=== PATIENT | male | born 1975 | race Caucasian/White ===

== ENCOUNTER 2016-09-03 18:44 | Emergency (ER) | payer OTHER ==
[2016-09-03 19:08] LABS: Mean Cell Volume 95.5 fl (78-100); Mean Corpuscular Hemoglobin 37.4 pg (26-32); Mean Platelet Volume 10.9 fl (6-9.5); Platelet Count 213 K/mm3 (150-450); Red Blood Count 4.44 M/mm3 (4.1-5.6); White Blood Count 7.7 K/mm3 (4.0-10.5)
[2016-09-03] MEDS ORDERED: DILAUDID 1 MG/ML INJECTION IV ONE ×2 (19:14→22:11)
[2016-09-03] MEDS ORDERED: Phenergan 25 MG INJ IV ONE ×2 (19:14→22:11)
[2016-09-03] MEDS ORDERED: Sodium Chloride 0.9% 1000 ML 1,000 ML IV SCH (19:15)
--- NOTE | 2016-09-03 19:22 | ERPHSYRPT ---
- History of Present Illness Time Seen by Provider: 09/03/16 19:05 Historian: patient Exam Limitations: no limitations Patient Subjective Stated Complaint: co pain to right side of abd for 2 days now , pt has hx of pancreatitis,kidney disease, and liver problems.nausea Triage Nursing Assessment: pt alert, and moaning in pain,rubbing right side of abd,able to eat today, and large and distended, last bm was yesterday, Physician History: FOR THE PAST 2 DAYS PT HAS HAD SHARP CONSTANT DIFFUSE ABDOMINAL PAIN RADIATING TO THE BACK WITH SHORTNESS OF AIR AND DIAPHORESIS. PT STATES HE HAD PANCREATITIS 4 MONTHS AGO AND WAS HOSPITALIZED AT [facility] FOR 1 MONTH. PT ALSO STATES HE DRINKS 4-5 BEERS/DAY FOR THE PAST 15 YEARS. PT DENIES FEVER, CHILLS, RASH. Allergies/Adverse Reactions: morphine Adverse Reaction (Verified 09/03/16 18:54) Home Medications: Alprazolam 1 mg [Xanax 1 mg] 2 tab PO TIDPRN PRN 06/16/14 [History] Citalopram Hydrobromide 20 mg* [ceLEXa 20 MG] 1 tab PO DAILY 06/16/14 [ History] Levetiracetam [Keppra] 1,000 mg PO BID 02/04/16 [History] Glipizide 10 mg [Glucotrol 10 MG] 10 mg PO BID 05/14/16 [History] PANTOPRAZOLE 40 mg Tablet [Protonix 40MG Tablet] 40 mg PO BID 05/14/16 [ History] Glyburide 5 mg PO DAILY 05/18/16 [History] Hx Tetanus, Diphtheria Vaccination/Date Given: Yes Hx Influenza Vaccination/Date Given: Yes Hx Pneumococcal Vaccination/Date Given: No Immunizations Up to Date: Yes - Review of Systems Constitutional: No Fever, No Chills Respiratory: Dyspnea Abdominal/Gastrointestinal: Abdominal Pain Musculoskeletal: Back Pain Skin: No Rash Endocrine: Excessive Sweating All Other Systems: Reviewed and Negative - Past Medical History Pertinent Past Medical History: Yes Neurological History: Seizures ENT History: No Pertinent History Cardiac History: No Pertinent History Respiratory History: COPD Endocrine Medical History: Diabetes Type II Musculoskeletal History: No Pertinent History GI Medical History: Pancreatitis, Other History: No Pertinent History Psycho-Social History: Anxiety, Depression Male Reproductive Disorders: No Pertinent History Other Medical History: hx orif rt elbow. 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 - Past Surgical History Past Surgical History: Yes Neuro Surgical History: No Pertinent History Cardiac: No Pertinent History Respiratory: No Pertinent History Gastrointestinal: No Pertinent History Genitourinary: No Pertinent History Musculoskeletal: Orthopedic Surgery Male Surgical History: No Pertinent History Other Surgical History: elbow - Social History Smoking Status: Never smoker Exposure to second hand smoke: No Drug Use: none Patient Lives Alone: No - Nursing Vital Signs Nursing Vital Signs: Initial Vital Signs Temperature 98.8 F Temperature Source Oral Pulse Rate 78 Respiratory Rate 16 Blood Pressure 123/78 Pain Intensity 9 - Physical Exam General Appearance: alert Eye Exam: PERRL/EOMI Ears, Nose, Throat Exam: pharynx normal, moist mucous membranes Neck Exam: normal inspection Respiratory Exam: wheezing (DIFFUSE MINIMAL EXPIRATORY WHEEZING) Cardiovascular Exam: tachycardia Gastrointestinal/Abdomen Exam: tenderness (MILD DIFFUSE TENDERNESS), distention , other (B.S. MILDLY HYPERACTIVE BUT NORMOTONIC) Back Exam: normal range of motion Extremity Exam: normal inspection, No pedal edema Neurologic Exam: alert, cooperative Skin Exam: warm, dry SpO2 Interpretation: normal SpO2: 97 Oxygen Delivery: Room Air - Course Nursing assessment & vital signs reviewed: Yes EKG Interpreted by Me: RATE ([id number]), Sinus Tach, NORMAL AXIS, NORMAL INTERVALS - Radiology Exams Chest X-ray Interpretation: Interpreted by me, No Pneumonia - CT Exams Abdomen/Pelvis CT Interpretation: Discussed w/radiologist (COMPARED TO 02/04/16: NEW 13.4 CM SPLENOMEGALY & MILD FECAL STASIS. STABLE FATTY LIVER & SIGMOID DIVERTICULOSIS. REMAINING ABD/PEL NEGATIVE.) Ordered Tests: Active Orders 24 hr Category Date Time Status Accucheck STAT Care 09/03/16 22:12 Active Clean Catch Urine Specimen STAT Care 09/03/16 19:14 Active EKG-ER Only STAT Care 09/03/16 19:14 Active IV Insertion STAT Care 09/03/16 18:58 Active IV Insertion STAT Care 09/03/16 20:24 Active ABDOMEN AND PELVIS W/0 CONTRAS [CT] Stat Exams 09/03/16 19:14 Taken CHEST 2 VIEWS (PA AND LAT) Stat Exams 09/03/16 19:15 Taken AMYLASE Stat Lab 09/03/16 18:55 Completed BLOOD CULTURE Stat Lab 09/03/16 19:30 Received CBC W DIFF Stat Lab 09/03/16 18:55 Completed CHOLESTEROL Stat Lab 09/03/16 18:55 Completed CMP Stat Lab 09/03/16 18:55 Results ETHOH [Ethyl Alcohol,Urine] Stat Lab 09/03/16 19:23 Completed LIPASE Stat Lab 09/03/16 18:55 Completed MAG [MAGNESIUM] Stat Lab 09/03/16 18:55 Completed Manual Differential NC Stat Lab 09/03/16 18:55 Completed TRIGLYCERIDE Stat Lab 09/03/16 18:55 Completed TROPONIN Stat Lab 09/03/16 18:55 Completed UA Stat Lab 09/03/16 18:58 Completed Urine Triage Profile Stat Lab 09/03/16 19:14 Completed Respiratory Nebulizer STAT RT 09/03/16 19:23 Completed Medication Summary Generic Name Dose Route Start Last Admin Trade Name Freq PRN Reason Stop Dose Admin Sodium Chloride 1,000 mls @ 100 mls/hr 09/03/16 19:15 09/03/16 19:32 Sodium Chloride 0.9% 1000 Ml IV 10/03/16 19:14 100 mls/hr .Q10H JENSEN Administration Discontinued Medications Generic Name Dose Route Start Last Admin Trade Name Freq PRN Reason Stop Dose Admin Albuterol Sulfate 2.5 mg 09/03/16 19:23 09/03/16 19:34 Proventil 2.5 Mg/3 Ml Neb IH 09/03/16 19:24 2.5 mg STAT ONE Administration Albuterol Sulfate Confirm 09/03/16 19:32 Proventil 2.5 Mg/3 Ml Neb Administered 09/03/16 19:33 Dose 2.5 mg IH .STK-MED ONE Hydromorphone HCl 1 mg 09/03/16 19:14 09/03/16 19:33 Dilaudid 1 Mg/Ml Injection IV 09/03/16 19:15 1 mg STAT ONE Administration Hydromorphone HCl Confirm 09/03/16 19:23 Dilaudid 1 Mg/Ml Injection Administered 09/03/16 19:24 Dose 1 mg .ROUTE .STK-MED ONE Hydromorphone HCl Confirm 09/03/16 20:39 Dilaudid 1 Mg/Ml Injection Administered 09/03/16 20:40 Dose 1 mg .ROUTE .STK-MED ONE Hydromorphone HCl 1 mg 09/03/16 22:11 09/03/16 22:18 Dilaudid 1 Mg/Ml Injection IV 09/03/16 22:12 1 mg STAT ONE Administration Hydromorphone HCl Confirm 09/03/16 22:16 Dilaudid 1 Mg/Ml Injection Administered 09/03/16 22:17 Dose 1 mg .ROUTE .STK-MED ONE Sodium Chloride Confirm 09/03/16 19:23 Sodium Chloride 0.9% 1000 Ml Administered 09/03/16 19:24 Dose 1,000 mls @ ud .ROUTE .STK-MED ONE Magnesium Sulfate/Dextrose 100 mls @ 200 mls/hr 09/03/16 20:29 09/03/16 20:46 Magnesium 1 Gm / 100 Ml D5w IV 09/03/16 20:58 200 mls/hr STAT ONE Administration Magnesium Sulfate/Dextrose Confirm 09/03/16 20:46 Magnesium 1 Gm / 100 Ml D5w Administered 09/03/16 20:47 Dose 100 mls @ ud IV .STK-MED ONE Insulin Human Regular 10 unit 09/03/16 20:27 09/03/16 20:41 Novolin R IV 09/03/16 20:28 10 unit STAT ONE Administration Insulin Human Regular Confirm 09/03/16 20:38 Novolin R Administered 09/03/16 20:39 Dose 10 unit .ROUTE .STK-MED ONE Promethazine HCl 12.5 mg 09/03/16 19:14 09/03/16 19:33 Phenergan 25 Mg Inj IV 09/03/16 19:15 12.5 mg STAT ONE Administration Promethazine HCl Confirm 09/03/16 19:23 Phenergan 25 Mg Inj Administered 09/03/16 19:24 Dose 25 mg .ROUTE .STK-MED ONE Promethazine HCl 12.5 mg 09/03/16 22:11 09/03/16 22:17 Phenergan 25 Mg Inj IV 09/03/16 22:12 12.5 mg STAT ONE Administration Promethazine HCl Confirm 09/03/16 22:16 Phenergan 25 Mg Inj Administered 09/03/16 22:17 Dose 25 mg .ROUTE .STK-MED ONE Lab/Rad Data: Laboratory Result Diagrams 09/03/16 18:55 09/03/16 18:55 Laboratory Results 09/03/16 09/03/16 09/03/16 Range/Units 19:23 19:14 18:58 WBC (4.0-10.5) K/mm3 RBC (4.1-5.6) M/mm3 Hgb (12.5-18.0) gm/dl Hct (42-50) % MCV (78-100) fl MCH (26-32) pg MCHC (32-36) g/dl RDW (11.5-14.0) % Plt Count (150-450) K/mm3 MPV (6-9.5) fl Segmented Neutrophils (36.-66.) % Lymphocytes (Manual) (24-44) % Monocytes (Manual) (0.0-12.0) % Eosinophils (Manual) (0.00-3.0) % Differential Comment Platelet Estimate (NORMAL) Sodium (136-145) mEq/L Potassium (3.5-5.1) mEq/L Chloride (98-107) mEq/L Carbon Dioxide Anion Gap BUN (9-20) mg/dL Creatinine (0.55-1.30) mg/dl Estimated GFR ML/MIN Glucose (70-110) MG/DL Calcium (8.5-10.1) mg/dL Magnesium (1.8-2.4) mg/dL Total Bilirubin (0.2-1.0) mg/dL AST (15-37) U/L ALT (12-78) U/L Alkaline Phosphatase (46-116) U/L Troponin I (0.000-0.056) ng/ml Serum Total Protein Albumin (3.4-5.0) g/dL Amylase (25-115) U/L Lipase (73-393) U/L Ur Collection Type CLEAN CATCH Urine Color YELLOW (YELLOW) Urine Appearance CLEAR (CLEAR) Urine pH 5.5 5.5 (5-6) Ur Specific [place] 1.015 (1.005-1.025) Urine Protein NEGATIVE (Negative) Urine Glucose (UA) 500 (NEGATIVE) mg/dL Urine Ketones NEGATIVE (NEGATIVE) Urine Nitrite NEGATIVE (NEGATIVE) Urine Bilirubin NEGATIVE (NEGATIVE) Urine Urobilinogen 0.2 (0-1) mg/dL Urine WBC (Auto) NEGATIVE (NEGATIVE) Urine RBC (Auto) NEGATIVE (0-5) Sergo/ul Urine Opiates Level NEG. (NEGATIVE) Ur Methadone NEG. (NEGATIVE) Urine Barbiturates NEG. (NEGATIVE) Ur Phencyclidine (PCP) NEG. (NEGATIVE) Urine Amphetamine NEG. (NEGATIVE) U Benzodiazepine Level POS. (NEGATIVE) Urine Cocaine NEG. (NEGATIVE) Urine Marijuana (THC) NEG. (NEGATIVE) Urine Ethyl Alcohol 87 H (0.00-20) mg/dl Specimen Received [id number] 09/03/16 09/03/16 09/03/16 Range/Units 18:55 18:55 18:55 WBC (4.0-10.5) K/mm3 RBC (4.1-5.6) M/mm3 Hgb (12.5-18.0) gm/dl Hct (42-50) % MCV (78-100) fl MCH (26-32) pg MCHC (32-36) g/dl RDW (11.5-14.0) % Plt Count (150-450) K/mm3 MPV (6-9.5) fl Segmented Neutrophils (36.-66.) % Lymphocytes (Manual) (24-44) % Monocytes (Manual) (0.0-12.0) % Eosinophils (Manual) (0.00-3.0) % Differential Comment Platelet Estimate (NORMAL) Sodium 131 L (136-145) mEq/L Potassium 4.9 (3.5-5.1) mEq/L Chloride 96 L (98-107) mEq/L Carbon Dioxide Pending Anion Gap Pending BUN 15 (9-20) mg/dL Creatinine 0.55 (0.55-1.30) mg/dl Estimated GFR > 60 ML/MIN Glucose 454 H (70-110) MG/DL Calcium 6.6 L (8.5-10.1) mg/dL Magnesium 1.7 L (1.8-2.4) mg/dL Total Bilirubin 1.3 H (0.2-1.0) mg/dL AST 126 H (15-37) U/L ALT 123 H (12-78) U/L Alkaline Phosphatase 110 (46-116) U/L Troponin I < 0.017 (0.000-0.056) ng/ml Serum Total Protein Pending Albumin 3.4 (3.4-5.0) g/dL Amylase 47 (25-115) U/L Lipase 242 (73-393) U/L Ur Collection Type Urine Color (YELLOW) Urine Appearance (CLEAR) Urine pH (5-6) Ur Specific [place] (1.005-1.025) Urine Protein (Negative) Urine Glucose (UA) (NEGATIVE) mg/dL Urine Ketones (NEGATIVE) Urine Nitrite (NEGATIVE) Urine Bilirubin (NEGATIVE) Urine Urobilinogen (0-1) mg/dL Urine WBC (Auto) (NEGATIVE) Urine RBC (Auto) (0-5) Sergo/ul Urine Opiates Level (NEGATIVE) Ur Methadone (NEGATIVE) Urine Barbiturates (NEGATIVE) Ur Phencyclidine (PCP) (NEGATIVE) Urine Amphetamine (NEGATIVE) U Benzodiazepine Level (NEGATIVE) Urine Cocaine (NEGATIVE) Urine Marijuana (THC) (NEGATIVE) Urine Ethyl Alcohol (0.00-20) mg/dl Specimen Received 09/03/16 Range/Units 18:55 WBC 7.7 (4.0-10.5) K/mm3 RBC 4.44 (4.1-5.6) M/mm3 Hgb 16.6 (12.5-18.0) gm/dl Hct 42.4 (42-50) % MCV 95.5 (78-100) fl MCH 37.4 H (26-32) pg MCHC 39.2 H (32-36) g/dl RDW 13.0 (11.5-14.0) % Plt Count 213 (150-450) K/mm3 MPV 10.9 H (6-9.5) fl Segmented Neutrophils 47 (36.-66.) % Lymphocytes (Manual) 39 (24-44) % Monocytes (Manual) 12 (0.0-12.0) % Eosinophils (Manual) 2 (0.00-3.0) % Differential Comment NORMAL Platelet Estimate NORMAL (NORMAL) Sodium (136-145) mEq/L Potassium (3.5-5.1) mEq/L Chloride (98-107) mEq/L Carbon Dioxide Anion Gap BUN (9-20) mg/dL Creatinine (0.55-1.30) mg/dl Estimated GFR ML/MIN Glucose (70-110) MG/DL Calcium (8.5-10.1) mg/dL Magnesium (1.8-2.4) mg/dL Total Bilirubin (0.2-1.0) mg/dL AST (15-37) U/L ALT (12-78) U/L Alkaline Phosphatase (46-116) U/L Troponin I (0.000-0.056) ng/ml Serum Total Protein Albumin (3.4-5.0) g/dL Amylase (25-115) U/L Lipase (73-393) U/L Ur Collection Type Urine Color (YELLOW) Urine Appearance (CLEAR) Urine pH (5-6) Ur Specific [place] (1.005-1.025) Urine Protein (Negative) Urine Glucose (UA) (NEGATIVE) mg/dL Urine Ketones (NEGATIVE) Urine Nitrite (NEGATIVE) Urine Bilirubin (NEGATIVE) Urine Urobilinogen (0-1) mg/dL Urine WBC (Auto) (NEGATIVE) Urine RBC (Auto) (0-5) Sergo/ul Urine Opiates Level (NEGATIVE) Ur Methadone (NEGATIVE) Urine Barbiturates (NEGATIVE) Ur Phencyclidine (PCP) (NEGATIVE) Urine Amphetamine (NEGATIVE) U Benzodiazepine Level (NEGATIVE) Urine Cocaine (NEGATIVE) Urine Marijuana (THC) (NEGATIVE) Urine Ethyl Alcohol (0.00-20) mg/dl Specimen Received - Progress Discussed with : Other (SPOKE WITH DR CABALLERO(HOSPITALIST AT [facility] )([id number]) WHO ACCEPTED PT FOR TRANSFER TO [facility] A DIRECT ADMISSION.) - Departure Time of Disposition: 23:22 Departure Disposition: Transfer ([facility].) Clinical Impression: ABDOMINAL PAIN, DYSPNEA, HYPERTRIGLYCERIDEMIA Condition: Fair Critical Care Time: No
[2016-09-03] MEDS ORDERED: PROVENTIL 2.5 MG/3 ML NEB IH ONE ×2 (19:23→19:32)
[2016-09-03] MEDS ORDERED: Phenergan 25 MG INJ ONE ×2 (19:23→22:16)
[2016-09-03] MEDS ORDERED: Sodium Chloride 0.9% 1000 ML 1,000 ML ONE (19:23)
[2016-09-03] MEDS ORDERED: DILAUDID 1 MG/ML INJECTION ONE ×3 (19:23→22:16)
[2016-09-03 19:24] LABS: ALBUMIN 3.4 g/dL (3.4-5.0); BILIRUBIN,TOTAL 1.3 mg/dL (0.2-1.0); BLOOD UREA NITROGEN 15 mg/dL (9-20); CHLORIDE 96 mEq/L (98-107); Glucose 454 MG/DL (70-110); Potassium 4.9 mEq/L (3.5-5.1); SODIUM 131 mEq/L (136-145)
[2016-09-03 19:29] LABS: LIPASE 242 U/L (73-393)
[2016-09-03 19:36] LABS: MAGNESIUM 1.7 mg/dL (1.8-2.4)
[2016-09-03 19:41] LABS: COMPLETE URINE MICROSCOPIC? NO; Collection Type CLEAN CATCH; Ph 5.5 (5-6)
[2016-09-03 19:48] LABS: TROPONIN < 0.017 ng/ml (0.000-0.056)
[2016-09-03 20:15] LABS: ALKALINE PHOSPHATASE 110 U/L (46-116)
[2016-09-03 20:17] LABS: Eosinophil 2 % (0.00-3.0); Platelet Estimate NORMAL (NORMAL); Total Cells Counted 100
[2016-09-03] MEDS ORDERED: NovoLIN R IV ONE (20:27)
[2016-09-03] MEDS ORDERED: Magnesium 1 Gm / 100 Ml D5W*** 100 ML IV ONE ×2 (20:29→20:46)
[2016-09-03] MEDS ORDERED: NovoLIN R ONE (20:38)
[2016-09-03 21:09] LABS: SGOT/AST 126 U/L (15-37)
[2016-09-03 21:51] LABS: SGPT/ALT 123 U/L (12-78)
[2016-09-04 00:08] VITALS: BP 133/88
[2016-09-04] MEDS ORDERED: DILAUDID 1 MG/ML INJECTION IV ONE (00:39)
[2016-09-04] MEDS ORDERED: DILAUDID 1 MG/ML INJECTION ONE (00:42)
[2016-09-04 00:48] VITALS: PULSE 81; O2SAT 93
--- NOTE | 2016-09-04 08:36 | XRAY ---
Indication: Short of breath. Comparison: February 21, 2015 PA/lateral chest again hyperinflated and clear. Heart and mediastinal structures stable and within normal limits. Bony thorax intact. Impression: Stable nonacute hyperinflated chest.
--- NOTE | 2016-09-04 08:37 | XRAY ---
Indication: Bilateral flank and mid abdominal pain. Dark stools. History of pancreatitis. Multiple contiguous axial images obtained through the abdomen and pelvis without contrast as ordered. Comparison: February 04, 2016 Lung bases again demonstrates minimal bibasilar dependent atelectasis. Heart is not enlarged. Stomach is distended with food/fluid. Noncontrasted bowel loops appear nonobstructed. There is now mild diffuse scattered colonic fecal debris. Normal appendix. Again mild sigmoid diverticulosis without diverticulitis. No free fluid/air. Stable fatty liver. The spleen is now enlarged measuring 13.4 cm again with calcified granulomas. Remaining liver, gallbladder, pancreas, spleen, adrenal glands, kidneys, ureters, bladder, and aorta appear unremarkable for noncontrast exam. Osseous structures intact again with lower lumbar degenerative changes. Impression: 1. Fecal stasis without obstruction. 2. No acute intra-abdominal/pelvic abnormalities on this noncontrast exam. 3. Incidental splenomegaly, sigmoid diverticulosis, and fatty liver. CT DI 27.82
== END 2016-09-04 00:47 | disposition short-term general hospital (02) ==
LOC: ED 18:44
DX: R10.9 Unspecified abdominal pain (principal); R06.00 Dyspnea, unspecified; E78.1 Pure hyperglyceridemia; R06.02 Shortness of breath; R61 Generalized hyperhidrosis; Z79.899 Other long term (current) drug therapy; E11.9 Type 2 diabetes mellitus without complications
CPT/HCPCS: 36000; 36415; 71020; 74176; 80053; 80307; 80320; 81002; 82150; 82465; 82962; 83690; 83735; 83986; 84478; 84484; 85025; 87040; 93005; 94640; 96360; 96361; 96365; 96374; 96375; 99284; J1170; J2550; J3475

== ENCOUNTER 2016-10-28 15:16 | Emergency (ER) | payer OTHER, SELFPAY ==
[2016-10-28] MEDS ORDERED: Sodium Chloride 0.9% 1000 ML 1,000 ML IV SCH (16:00)
--- NOTE | 2016-10-28 16:00 | ERPHSYRPT ---
- History of Present Illness Time Seen by Provider: 10/28/16 15:20 Source: patient Exam Limitations: clinical condition Patient Subjective Stated Complaint: pt state he noticed left hand and arm swelling when he woke up this morning. pt c.o pain to left hand and arm. Triage Nursing Assessment: pt pink, warm, dry. left hand swollen, no bruising. no redness. radial and brachial pulses strong. Physician History: PATIENT WITH HISTORY OF HYPERTENSION,TYPE 2 DIABETES, SEIZURE DISORDER AND PANCREATITIS AWAKENED FROM SLEEP WITH LEFT HAND, WRIST AND FOREARM PAIN AND SWELLING. DENIES INJURY OR TRAUMA. HAS MARKED PAIN UPON RANGE OF MOTION OF DIGITS, MOTION OR WRIST. DENIES FEVER, CHILLS. Occurred: this morning Method of Injury: unknown (DENIES INJURY OR TRAUMA) Quality: constant Severity of Pain-Max: severe Severity of Pain-Current: severe Extremities Pain Location: forearm: left, wrist: left, hand: left Modifying Factors: Improves With: movement Associated Symptoms: none Allergies/Adverse Reactions: morphine Adverse Reaction (Verified 10/28/16 15:22) Home Medications: Alprazolam 1 mg [Xanax 1 mg] 2 tab PO TIDPRN PRN 06/16/14 [History] Citalopram Hydrobromide 20 mg* [ceLEXa 20 MG] 1 tab PO DAILY 06/16/14 [ History] Levetiracetam [Keppra] 1,000 mg PO BID 02/04/16 [History] Glipizide 10 mg [Glucotrol 10 MG] 10 mg PO BID 05/14/16 [History] PANTOPRAZOLE 40 mg Tablet [Protonix 40MG Tablet] 40 mg PO BID 05/14/16 [ History] Glyburide 5 mg PO DAILY 05/18/16 [History] Atorvastatin Calcium [Lipitor 40Mg] 40 mg PO HS 10/28/16 [History] Hx Tetanus, Diphtheria Vaccination/Date Given: Yes (up to date) Hx Influenza Vaccination/Date Given: Yes Hx Pneumococcal Vaccination/Date Given: No Immunizations Up to Date: Yes - Review of Systems Constitutional: No Fever, No Chills Eyes: No Symptoms Ears, Nose, & Throat: No Symptoms Respiratory: No Symptoms, No Cough, No Dyspnea Cardiac: No Chest Pain, No Edema, No Syncope Abdominal/Gastrointestinal: No Symptoms, No Abdominal Pain, No Nausea, No Vomiting, No Diarrhea Genitourinary Symptoms: No Dysuria Musculoskeletal: Joint Pain, Joint Swelling, No Back Pain, No Neck Pain Skin: No Rash Neurological: No Dizziness, No Focal Weakness, No Sensory Changes Psychological: No Symptoms Endocrine: No Symptoms All Other Systems: Reviewed and Negative - Past Medical History Pertinent Past Medical History: Yes Neurological History: Seizures ENT History: No Pertinent History Cardiac History: No Pertinent History Respiratory History: COPD Endocrine Medical History: Diabetes Type II Musculoskeletal History: No Pertinent History GI Medical History: Pancreatitis, Other History: No Pertinent History Psycho-Social History: Anxiety, Depression Male Reproductive Disorders: No Pertinent History Other Medical History: hx orif rt elbow. 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 - Past Surgical History Past Surgical History: Yes Neuro Surgical History: No Pertinent History Cardiac: No Pertinent History Respiratory: No Pertinent History Gastrointestinal: No Pertinent History Genitourinary: No Pertinent History Musculoskeletal: Orthopedic Surgery Male Surgical History: No Pertinent History Other Surgical History: elbow - Social History Smoking Status: Never smoker Exposure to second hand smoke: No Drug Use: none Patient Lives Alone: No - Nursing Vital Signs Nursing Vital Signs: Initial Vital Signs Temperature 97.8 F Temperature Source Oral Pulse Rate 87 Respiratory Rate 18 Blood Pressure [Right Arm] 130/70 Pain Intensity 3 - Physical Exam General Appearance: alert Eyes, Ears, Nose, Throat Exam: moist mucous membranes Neck Exam: non-tender, supple Cardiovascular/Respiratory Exam: chest non-tender, normal breath sounds, regular rate/rhythm, no respiratory distress Abdominal Exam: non-tender, No guarding Back Exam: normal inspection, No vertebral tenderness Shoulder Exam: normal inspection Hand Exam: soft tissue tenderness (SWELLING DORSUM LEFT HAND, WRIST, MID TO DISTAL FOREARM, MARKED TENDERNESS, MARKED PAIN UPON PASSIVE MOTION DIGITS, WRIST MOTION.), stiffness DTR - Upper Extremity Exam: bicep (R): 2+, bicep (L): 2+, tricep (R): 2+, tricep (L): 2+ Neuro/Tendon Exam: normal sensation, normal motor functions Mental Status Exam: alert, oriented x 3, cooperative Skin Exam: normal color, warm, dry SpO2: 94 Oxygen Delivery: Room Air - Radiology Exams Left Hand X-ray Interpretation: Interpreted by me, No Fracture (SOFT TISSUE SWELLING WITHOUT FRACTURE) Left Wrist X-ray Interpretation: Interpreted by me, No Fracture (SOFT TISSUE SWELLING WITHOUT FRACTURE) - Radiology Ultrasound Exam Left Venous Upper Extremity Ultrasound: discussed w/radiologist, Other (NO DVT) Ordered Tests: Active Orders 24 hr Category Date Time Status IV Insertion STAT Care 10/28/16 15:49 Active Sling Application STAT Care 10/28/16 17:16 Active Splint STAT Care 10/28/16 17:16 Active FOREARM Stat Exams 10/28/16 15:25 Taken HAND (MINIMUM 3 VIEWS) Stat Exams 10/28/16 15:25 Taken VENOUS UNILAT/LIMITED EXTREMIT [US] Stat Exams 10/28/16 15:47 Taken BLOOD CULTURE Stat Lab 10/28/16 16:00 Received BMP Stat Lab 10/28/16 15:55 Results CBC W DIFF Stat Lab 10/28/16 15:55 Completed CK-Creatinine Phosphokinase Stat Lab 10/28/16 15:55 Results SED RATE [Erythrocyte Sedimentation Rate] Stat Lab 10/28/16 15:54 Completed Urine Triage Profile Stat Lab 10/28/16 15:54 Completed Medication Summary Generic Name Dose Route Start Last Admin Trade Name Freq PRN Reason Stop Dose Admin Sodium Chloride 1,000 mls @ 500 mls/hr 10/28/16 16:00 10/28/16 16:05 Sodium Chloride 0.9% 1000 Ml IV 11/27/16 15:59 500 mls/hr .Q2H JENSEN Administration Vancomycin HCl 250 mls @ 167 mls/hr 10/28/16 16:13 10/28/16 16:17 Vancomycin 1gm/ Ns 250ml IV 10/28/16 17:42 167 mls/hr STAT ONE Administration Discontinued Medications Generic Name Dose Route Start Last Admin Trade Name Freq PRN Reason Stop Dose Admin Hydromorphone HCl 2 mg 10/28/16 16:01 Dilaudid 2 Mg Injection IV 11/02/16 16:00 Q4H PRN PRN PAIN Hydromorphone HCl Confirm 10/28/16 16:03 Hydromorphone 1 Mg/Ml Ampule Administered 10/28/16 16:04 Dose 2 mg .ROUTE .STK-MED ONE Hydromorphone HCl 2 mg 10/28/16 16:06 10/28/16 16:09 Hydromorphone 1 Mg/Ml Ampule IV 10/28/16 16:07 2 mg STAT ONE Administration Sodium Chloride Confirm 10/28/16 16:03 Sodium Chloride 0.9% 1000 Ml Administered 10/28/16 16:04 Dose 1,000 mls @ ud .ROUTE .STK-MED ONE Vancomycin HCl Confirm 10/28/16 16:14 Vancomycin 1gm/ Ns 250ml Administered 10/28/16 16:15 Dose 250 mls @ ud IV .STK-MED ONE Ketorolac Tromethamine 30 mg 10/28/16 17:13 10/28/16 17:18 Toradol 30 Mg Injection IV 10/28/16 17:14 30 mg STAT ONE Administration Ketorolac Tromethamine Confirm 10/28/16 17:17 Toradol 30 Mg Injection Administered 10/28/16 17:18 Dose 30 mg .ROUTE .STK-MED ONE Methylprednisolone Sodium Succinate 125 mg 10/28/16 17:13 10/28/16 17:19 Solu-Medrol 125 Mg IV 10/28/16 17:14 125 mg STAT ONE Administration Methylprednisolone Sodium Succinate Confirm 10/28/16 17:17 Solu-Medrol 125 Mg Administered 10/28/16 17:18 Dose 125 mg .ROUTE .STK-MED ONE Ondansetron HCl 4 mg 10/28/16 16:01 10/28/16 16:05 Zofran 4 Mg/2 Ml Vial IV 10/28/16 16:02 4 mg STAT ONE Administration Ondansetron HCl Confirm 10/28/16 16:03 Zofran 4 Mg/2 Ml Vial Administered 10/28/16 16:04 Dose 4 mg .ROUTE .STK-MED ONE Lab/Rad Data: Laboratory Result Diagrams 10/28/16 15:55 10/28/16 15:55 Laboratory Results 10/28/16 10/28/16 10/28/16 Range/Units 15:55 15:55 15:54 WBC 9.9 (4.0-10.5) K/mm3 RBC 4.37 (4.1-5.6) M/mm3 Hgb 15.0 (12.5-18.0) gm/dl Hct 41.9 L (42-50) % MCV 95.9 (78-100) fl MCH 34.3 H (26-32) pg MCHC 35.8 (32-36) g/dl RDW 13.3 (11.5-14.0) % Plt Count 161 (150-450) K/mm3 MPV 10.2 H (6-9.5) fl Gran % 74.1 H (36.0-66.0) % Lymphocytes % 16.9 L (24.0-44.0) % Monocytes % 8.2 (0.0-12.0) % Eosinophils % 0.7 (0.00-5.0) % Basophils % 0.1 (0.0-0.4) % Basophils # 0.01 (0-0.4) ESR 2 (0-15) mm/hr Sodium Pending Potassium Pending Chloride Pending Carbon Dioxide 23.1 (21-32) mEq/L Anion Gap Pending BUN 17 (9-20) mg/dL Creatinine 1.19 (0.55-1.30) mg/dl Estimated GFR > 60 ML/MIN Glucose 108 (70-110) MG/DL Calcium 9.1 (8.5-10.1) mg/dL Creatine Kinase 181 (39-308) U/L Urine Opiates Level (NEGATIVE) Ur Methadone (NEGATIVE) Urine Barbiturates (NEGATIVE) Ur Phencyclidine (PCP) (NEGATIVE) Urine Amphetamine (NEGATIVE) U Benzodiazepine Level (NEGATIVE) Urine Cocaine (NEGATIVE) Urine Marijuana (THC) (NEGATIVE) 10/28/16 Range/Units 15:54 WBC (4.0-10.5) K/mm3 RBC (4.1-5.6) M/mm3 Hgb (12.5-18.0) gm/dl Hct (42-50) % MCV (78-100) fl MCH (26-32) pg MCHC (32-36) g/dl RDW (11.5-14.0) % Plt Count (150-450) K/mm3 MPV (6-9.5) fl Gran % (36.0-66.0) % Lymphocytes % (24.0-44.0) % Monocytes % (0.0-12.0) % Eosinophils % (0.00-5.0) % Basophils % (0.0-0.4) % Basophils # (0-0.4) ESR (0-15) mm/hr Sodium Potassium Chloride Carbon Dioxide (21-32) mEq/L Anion Gap BUN (9-20) mg/dL Creatinine (0.55-1.30) mg/dl Estimated GFR ML/MIN Glucose (70-110) MG/DL Calcium (8.5-10.1) mg/dL Creatine Kinase (39-308) U/L Urine Opiates Level NEG. (NEGATIVE) Ur Methadone NEG. (NEGATIVE) Urine Barbiturates NEG. (NEGATIVE) Ur Phencyclidine (PCP) NEG. (NEGATIVE) Urine Amphetamine NEG. (NEGATIVE) U Benzodiazepine Level POS. (NEGATIVE) Urine Cocaine NEG. (NEGATIVE) Urine Marijuana (THC) NEG. (NEGATIVE) - Progress Progress: improved Progress Note: 10/28/16 17:38 PATIENT GIVEN NORMAL SALINE 500ML/HR, VANCOMYCIN 1GM IVPB AFTER BLOOD CULTURES, ZOFRAN 4MG, DILAUDID 2MG IV, ORTHOGLASS LEFT SHORT FOREARM SPLINT WITH ARM SLING Counseled pt/family regarding: lab results, diagnosis, need for follow-up, rad results - Departure Time of Disposition: 18:14 Departure Disposition: Home Clinical Impression: TENDONITIS LEFT HAND/WRIST , EARLY CELLULITIS LEFT HAND/WRIST Condition: Stable Critical Care Time: No Additional Instructions: MAINTAIN WRIST SPLINT WITH ARM SLING FOR 5 DAYS THEN REMOVE. CONSULT YOUR FAMILY PHYSICIAN IN 1 WEEK. NORCO 10/325 EVERY 4 HOURS FOR SEVERE PAIN. PREDNISONE 20MG, 2 TABLETS DAILY FOR 4 DAYS, AND TORADOL 10MG EVERY 6 HOURS FOR MILD TO MODERATE PAIN. ANTIBIOTIC AUGMENTIN 875MG TWICE DAILY FOR 10 DAYS. WATCH FOR SIGNS OF INCREASING INFECTION, RED STREAKS, FEVER, CHILLS. Prescriptions: Hydrocodone/APAP 10/325 mg [[place] 10/325 MG Tablet] 1 tab PO Q4H PRN PRN # 10 tablet PRN Reason: Pain Ketorolac Tromethamine [Toradol] 10 mg PO Q6HPRN PRN #20 tablet PRN Reason: Pain Amox Tr/Potass Clav. 875 mg [Augmentin 875-125 Tablet] 875 mg PO BID #20 tablet Prednisone 20 mg [Deltasone 20 mg] 2 tablet PO DAILY #8 tablet
[2016-10-28] MEDS ORDERED: Zofran 4 MG/2 ML VIAL IV ONE (16:01)
[2016-10-28] MEDS ORDERED: DILAUDID 2 MG INJECTION IV PRN (16:01)
[2016-10-28] MEDS ORDERED: Sodium Chloride 0.9% 1000 ML 1,000 ML ONE (16:03)
[2016-10-28] MEDS ORDERED: Zofran 4 MG/2 ML VIAL ONE (16:03)
[2016-10-28] MEDS ORDERED: Hydromorphone 1 mg/ml Ampule ONE (16:03)
[2016-10-28] MEDS ORDERED: Hydromorphone 1 mg/ml Ampule IV ONE (16:06)
[2016-10-28 16:10] LABS: BASOPHIL % 0.1 % (0.0-0.4); Eosinophil % 0.7 % (0.00-5.0); Granulocytes % 74.1 % (36.0-66.0); Lymphocytes % 16.9 % (24.0-44.0); Mean Cell Volume 95.9 fl (78-100); Mean Corpuscular Hemoglobin 34.3 pg (26-32); Mean Platelet Volume 10.2 fl (6-9.5); Monocytes % 8.2 % (0.0-12.0); Platelet Count 161 K/mm3 (150-450); Red Blood Count 4.37 M/mm3 (4.1-5.6); Red Cell Distribution Width 13.3 % (11.5-14.0); White Blood Count 9.9 K/mm3 (4.0-10.5)
[2016-10-28] MEDS ORDERED: Vancomycin 1GM/ Ns 250ML*** 250 ML IV ONE ×2 (16:13→16:14)
[2016-10-28 16:27] LABS: BLOOD UREA NITROGEN 17 mg/dL (9-20); Carbon Dioxide 23.1 mEq/L (21-32); Glucose 108 MG/DL (70-110)
[2016-10-28] MEDS ORDERED: TORAdol 30 mg Injection IV ONE (17:13)
[2016-10-28] MEDS ORDERED: solu-MEDROL 125 MG IV ONE (17:13)
[2016-10-28] MEDS ORDERED: TORAdol 30 mg Injection ONE (17:17)
[2016-10-28] MEDS ORDERED: solu-MEDROL 125 MG ONE (17:17)
[2016-10-28 17:55] LABS: CHLORIDE 104 mEq/L (98-107); Potassium 3.6 mEq/L (3.5-5.1); SODIUM 141 mEq/L (136-145)
[2016-10-28 17:59] LABS: ANION GAP 17.5 MEQ/L (5-15)
[2016-10-28 18:22] VITALS: BP 137/72; PULSE 78; O2SAT 99
--- NOTE | 2016-10-28 20:54 | XRAY ---
Indication: Pain and swelling. No known injury. Comparison: None 2 views of the left forearm demonstrates a few punctate soft tissue foreign bodies. No other bony, articular, or soft tissue abnormalities.
--- NOTE | 2016-10-28 20:56 | XRAY ---
Indication: Pain and swelling. No known injury. Comparison: None 3 views of the left hand demonstrates distal forearm punctate soft tissue foreign body. No other bony, articular, or soft tissue abnormalities.
--- NOTE | 2016-10-28 20:57 | XRAY ---
Indication: Left arm pain and swelling. No known injury. Two-dimensional sonogram and color Doppler imaging of the major venous vessels of the left upper extremity was performed. Comparison: None No thrombus seen in the visualized jugular, subclavian, axillary, brachial, basilic, cephalic, antecubital, radial, and ulnar veins. Veins demonstrate normal compressibility. Venous waveforms are normal with and without augmentation. Impression: Left upper extremity negative for DVT. Comment: Preliminary report was given.
== END 2016-10-28 18:22 | disposition home or self-care (01) ==
LOC: ED 15:16
PROC: 2W3DX1Z Immobilization of Left Lower Arm using Splint (ICD-10-PCS; principal; 2016-10-28)
DX: M77.8 Other enthesopathies, not elsewhere classified (principal); L03.114 Cellulitis of left upper limb; M79.642 Pain in left hand; M25.532 Pain in left wrist
CPT/HCPCS: 29126; 36000; 36415; 73090; 73130; 80048; 80307; 82550; 85025; 85652; 87040; 93971; 96360; 96365; 96366; 96374; 96375; 99284; 99285; J1170; J1885; J2405; J2930; J3370

== ENCOUNTER 2016-10-29 09:31 | Inpatient (IN) | payer OTHER, SELFPAY ==
[2016-10-29] MEDS ORDERED: VANCOCIN 1 GM VIAL*** 1.25 GM in Sodium Chloride 0.9% 250 ML 250 ML IV SCH (10:00)
[2016-10-29] MEDS ORDERED: KEPPRA 500 MG PO SCH (10:00)
[2016-10-29 10:30] LABS: Granulocytes % 86.8 % (36.0-66.0); Lymphocytes % 6.2 % (24.0-44.0); Mean Cell Volume 96.1 fl (78-100); Mean Corpuscular Hemoglobin 34.7 pg (26-32); Mean Platelet Volume 10.3 fl (6-9.5); Platelet Count 159 K/mm3 (150-450); Red Blood Count 4.32 M/mm3 (4.1-5.6); Red Cell Distribution Width 13.4 % (11.5-14.0); White Blood Count 15.2 K/mm3 (4.0-10.5)
[2016-10-29 10:39] LABS: ALBUMIN 3.6 g/dL (3.4-5.0); ALKALINE PHOSPHATASE 76 U/L (46-116); ANION GAP 19.1 MEQ/L (5-15); BILIRUBIN,TOTAL 0.8 mg/dL (0.2-1.0); BLOOD UREA NITROGEN 16 mg/dL (9-20); CHLORIDE 103 mEq/L (98-107); Carbon Dioxide 22.3 mEq/L (21-32); Glucose 165 MG/DL (70-110); Potassium 3.8 mEq/L (3.5-5.1); SGOT/AST 22 U/L (15-37); SGPT/ALT 67 U/L (12-78); SODIUM 141 mEq/L (136-145); Total Protein 7.4 gm/dL (6.4-8.2)
[2016-10-29] MEDS: DILAUDID 2 MG INJECTION IV PRN ×4 (11:11→20:37)
[2016-10-29] MEDS: Micronase 5 MG PO SCH (11:15)
[2016-10-29] MEDS: Protonix 40MG Tablet PO SCH ×2 (11:15→22:30)
[2016-10-29] MEDS: ceLEXa 20 MG PO SCH (12:51)
[2016-10-29] MEDS: Zosyn 3.375GM/100 Ml D5W 100 ML IV SCH ×2 (12:51→17:37)
[2016-10-29] MEDS: Glucotrol 10 MG PO SCH (16:03)
[2016-10-29] MEDS: XANAX 1 MG PO PRN ×2 (16:03→22:30)
[2016-10-29] MEDS ORDERED: VANCOCIN 1 GM VIAL*** 1 GM in Sodium Chloride 0.9% 250 ML 250 ML IV SCH (18:00)
[2016-10-29] MEDS: VANCOCIN 1 GM VIAL*** 1.25 GM in Sodium Chloride 0.9% 250 ML 250 ML IV SCH (18:55)
[2016-10-29] MEDS: OXYCODONE-ACETAMINOPHEN 10-325 PO PRN (22:31)
[2016-10-29] MEDS: ZOCOR 20MG PO SCH (22:31)
[2016-10-30] MEDS: Zosyn 3.375GM/100 Ml D5W 100 ML IV SCH ×5 (00:39→23:02)
[2016-10-30] MEDS: DILAUDID 2 MG INJECTION IV PRN ×7 (00:42→23:07)
[2016-10-30] MEDS: VANCOCIN 1 GM VIAL*** 1.25 GM in Sodium Chloride 0.9% 250 ML 250 ML IV SCH ×3 (01:57→20:19)
[2016-10-30] MEDS: Glucotrol 10 MG PO SCH ×2 (07:31→17:54)
[2016-10-30] MEDS: Micronase 5 MG PO SCH (07:31)
[2016-10-30] MEDS: OXYCODONE-ACETAMINOPHEN 10-325 PO PRN ×3 (07:31→17:54)
--- NOTE | 2016-10-30 08:01 | HP ---
CHIEF COMPLAINT: Left hand swelling, warmth, redness and pain. HISTORY OF PRESENT ILLNESS: The patient is a 41 year-old white male patient who presented himself to the emergency room with the above complaints. He was seen and x-rays were performed which showed some unusual appearance of punctate soft tissue foreign body. No other articular soft tissue abnormalities were noted. He was given oral antibiotic however the patient failed this and presented to my office on the morning of 10/29/2016 with the above complaints. The patient was felt to need to be admitted to the hospital for IV antibiotics and surgical consultation. PAST MEDICAL/SURGICAL HISTORY: Significant for chronic pain syndrome and anxiety. The patient also has hyperlipidemia, diabetes mellitus type 2, gastroesophageal reflux disease, history of seizure disorder. HOME MEDICATIONS: Albuterol, Citalopram, Fenofibrate, Gemfibrozil, Glyburide, Keppra, pantoprazole. He is taking Percocet 10/325 mg every four hours PRN pain. He is on 2 mg of Xanax four times a day for anxiety which has been weaned down to 1 mg recently. The patient also apparently has history of chronic hepatitis C. ALLERGIES: MORPHINE. PHYSICAL EXAMINATION: Revealed a well nourished, well developed 41 year-old white male patient who is in moderate distress due to his pain in the hand. HEENT: Normocephalic, atraumatic. Pupils equal round reactive to light. Extraocular movements intact. Oropharynx is pink and moist. NECK: Supple without lymphadenopathy, thyromegaly or JVD. CHEST: Clear to auscultation with good air movement bilaterally. HEART: Regular rate and rhythm without murmurs, rubs or gallops. ABDOMEN: Soft, nontender, nondistended without hepatosplenomegaly or masses. EXTREMITIES: Reveal the left hand currently being wrapped in JANETTE wrap and with a gauze splint. This was unwrapped and showed markedly edematous dorsum of the hand along with exquisite tenderness, redness and warmth particularly posteriorly. It extends upwards approximately half way up the elbow. There is no cyanosis, clubbing or edema otherwise present. NEUROLOGIC: The patient is alert and oriented x3 with no focal deficits noted. LAB DATA AND TESTS: Showed a glucose of 165. His electrolytes were normal. Liver enzymes were normal. His white blood cell count was 15,200 with what appeared to be a left shift with 86.8% granulocytes. The hemoglobin was 13.0, PLT count 159,000. His hemoglobin A1C was noted to be 5.3. ASSESSMENT: A patient with cellulitis of the left hand. He has been admitted for Zosyn and Vancomycin IV. We will obtain surgical consultation from Dr. Phillips from orthopedics. We will instruct the patient to keep his hand elevated above his heart and cool compresses. He is given Dilaudid for pain control in addition to his usual medication.
[2016-10-30] MEDS ORDERED: TROUGH DRUG LEVELS IJ ONE (09:30)
[2016-10-30] MEDS ORDERED: PNEUMOVAX 23 IM ONE (10:00)
[2016-10-30 10:12] LABS: BASOPHIL % 0.1 % (0.0-0.4); Eosinophil % 0.7 % (0.00-5.0); Granulocytes % 63.4 % (36.0-66.0); Lymphocytes % 25.4 % (24.0-44.0); Mean Cell Volume 99.5 fl (78-100); Mean Corpuscular Hemoglobin 34.4 pg (26-32); Mean Platelet Volume 10.2 fl (6-9.5); Monocytes % 10.4 % (0.0-12.0); Platelet Count 154 K/mm3 (150-450); Red Blood Count 4.18 M/mm3 (4.1-5.6); Red Cell Distribution Width 13.6 % (11.5-14.0); White Blood Count 10.9 K/mm3 (4.0-10.5)
[2016-10-30] MEDS: Protonix 40MG Tablet PO SCH ×2 (10:52→21:22)
[2016-10-30] MEDS: ceLEXa 20 MG PO SCH (10:52)
[2016-10-30] MEDS: KEPPRA 500 MG PO SCH (21:21)
[2016-10-30] MEDS: ZOCOR 20MG PO SCH (21:22)
[2016-10-30] MEDS: XANAX 1 MG PO PRN (21:22)
[2016-10-31] MEDS: VANCOCIN 1 GM VIAL*** 1.25 GM in Sodium Chloride 0.9% 250 ML 250 ML IV SCH ×3 (03:27→17:36)
[2016-10-31] MEDS: DILAUDID 2 MG INJECTION IV PRN ×7 (03:58→23:37)
[2016-10-31 05:45] LABS: BASOPHIL % 0.1 % (0.0-0.4); Eosinophil % 1.5 % (0.00-5.0); Granulocytes % 62.2 % (36.0-66.0); Lymphocytes % 25.1 % (24.0-44.0); Mean Corpuscular Hemoglobin 34.3 pg (26-32); Mean Platelet Volume 10.3 fl (6-9.5); Monocytes % 11.1 % (0.0-12.0); Platelet Count 159 K/mm3 (150-450); Red Blood Count 4.05 M/mm3 (4.1-5.6); Red Cell Distribution Width 13.4 % (11.5-14.0); White Blood Count 8.4 K/mm3 (4.0-10.5)
[2016-10-31] MEDS: Zosyn 3.375GM/100 Ml D5W 100 ML IV SCH ×4 (06:04→23:37)
[2016-10-31] MEDS: OXYCODONE-ACETAMINOPHEN 10-325 PO PRN ×3 (06:04→19:39)
[2016-10-31] MEDS: Micronase 5 MG PO SCH (07:54)
[2016-10-31] MEDS: Glucotrol 10 MG PO SCH ×2 (07:54→16:24)
--- NOTE | 2016-10-31 08:09 | OP ---
CONSULT DATE: 10/30/2016 REASON FOR CONSULT: Left wrist pain. HISTORY: The patient is a 41 year-old white male with left hand and swelling. It began spontaneously about 48 hours previous. He has been on Vancomycin and on Zosyn and is getting slowly better. He has demarcation line with step off about the distal third of the forearm anteriorly on the dorsum. Tenderness, swelling, redness and inflammation is seen throughout the wrist and the hand. Pain with passive dorsiflexion of the fingers of the wrist and the hand. X-rays unremarkable. No gross findings are seen. IMPRESSION: Cellulitis left distal forearm and hand. PLAN: MRI, ice, splint and he may be fed at the current time.
[2016-10-31] MEDS: ceLEXa 20 MG PO SCH (09:30)
[2016-10-31] MEDS: Protonix 40MG Tablet PO SCH ×2 (09:30→21:57)
[2016-10-31] MEDS: KEPPRA 500 MG PO SCH (09:30)
--- NOTE | 2016-10-31 09:52 | XRAY ---
Indication: Pain and swelling. Cellulitis. No known injury. Sagittal, coronal, and axial MRI left hand performed without contrast using T1, T2, and STIR sequences. 2nd-5th phalanges not completely included in the [id number]. Comparison: None Coronal STIR sequences degraded by motion artifact. There is moderate posterior subcutaneous soft tissue swelling/edema signal. No suspicious solid/cystic mass or abnormal fluid collection. Flexor and extensor mechanism intact without abnormal signal. No acute fracture, dislocation, cortical thinning, or abnormal bone marrow signal. Impression: Posterior hand soft tissue swelling/edema favoring clinically reported cellulitis. No abnormal fluid collection or evidence for underlying osteomyelitis.
[2016-10-31] MEDS: XANAX 1 MG PO PRN (12:10)
[2016-10-31] MEDS: ZOCOR 20MG PO SCH (21:57)
[2016-11-01] MEDS: VANCOCIN 1 GM VIAL*** 1.25 GM in Sodium Chloride 0.9% 250 ML 250 ML IV SCH (02:27)
[2016-11-01] MEDS: DILAUDID 2 MG INJECTION IV PRN (03:36)
[2016-11-01] MEDS: Zosyn 3.375GM/100 Ml D5W 100 ML IV SCH (05:44)
[2016-11-01] MEDS: XANAX 1 MG PO PRN (05:57)
[2016-11-01] MEDS: OXYCODONE-ACETAMINOPHEN 10-325 PO PRN ×2 (05:57→09:54)
[2016-11-01 07:34] VITALS: BP 113/75; O2SAT 93
[2016-11-01 07:47] VITALS: PULSE 72
[2016-11-01] MEDS ORDERED: PHARMACY DOSING REQUEST MC ONE (08:03)
[2016-11-01] MEDS: Glucotrol 10 MG PO SCH (08:06)
[2016-11-01] MEDS: Micronase 5 MG PO SCH (08:06)
[2016-11-01] MEDS ORDERED: DAPTOMYCIN IV SCH (09:00)
[2016-11-01] MEDS ORDERED: SODIUM CHLORIDE FLUSH IV SCH (09:00)
[2016-11-01] MEDS: ceLEXa 20 MG PO SCH (09:53)
[2016-11-01] MEDS: Protonix 40MG Tablet PO SCH (09:53)
== END 2016-11-01 11:30 | disposition home or self-care (01) | DRG 603 ==
LOC: MED SURG 09:31
PROVIDERS: ADMIT Family Medicine; ATTEND Family Medicine
DX: L03.114 Cellulitis of left upper limb (principal); M79.642 Pain in left hand; M79.89 Other specified soft tissue disorders; G89.4 Chronic pain syndrome; F45.42 Pain disorder with related psychological factors; F41.9 Anxiety disorder, unspecified; E78.5 Hyperlipidemia, unspecified; E11.9 Type 2 diabetes mellitus without complications; K21.9 Gastro-esophageal reflux disease without esophagitis; G40.909 Epilepsy, unspecified, not intractable, without status epilepticus; K73.9 Chronic hepatitis, unspecified; J44.9 Chronic obstructive pulmonary disease, unspecified; J45.909 Unspecified asthma, uncomplicated
CPT/HCPCS: 29126; 36000; 36415; 73090; 73130; 73218; 80048; 80053; 80177; 80202; 80307; 82550; 82962; 83036; 85025; 85652; 87040; 90732; 93971; 94760; 96360; 96365; 96366; 96374; 96375; 99284; 99285; J0878; J1170; J1885; J2405; J2543; J2930; J3370; A9270-GY

== ENCOUNTER 2017-12-16 15:39 | Observation (INO) | payer OTHER ==
[2017-12-16] MEDS ORDERED: DUONEB 0.5-3 MG/3 ml Neb IH ONE ×3 (15:48→17:38)
--- NOTE | 2017-12-16 15:54 | ERPHSYRPT ---
- History of Present Illness Time Seen by Provider: 12/16/17 15:49 Source: patient Exam Limitations: no limitations Physician History: The patient is a 42-year-old male who complains of a worsening cough and shortness of breath for 3 weeks. He has been using an albuterol MDI until he ran out yesterday. He went to [facility] earlier today and had an albuterol treatment but it didn't help very much. He's been getting weak and tired. He has a severe cough especially at night. He quit smoking 5 years ago this started up again a month ago. He stopped again yesterday. His past medical history significant for asthma and high cholesterol. Timing/Duration: week(s) (3), gradual onset, worse Activities at Onset: none Severity of Dyspnea-Max: severe Severity of Dyspnea-Current: severe Possible Cause: occasional episodes Modifying Factors: Improves With: albuterol inhaler, coughing Associated Symptoms: cough, weakness Allergies/Adverse Reactions: morphine Adverse Reaction (Intermediate, Verified 12/16/17 15:40) Hives Home Medications: Atorvastatin Calcium [Lipitor 40Mg] 40 mg PO HS 10/28/16 [History] Hx Tetanus, Diphtheria Vaccination/Date Given: Yes (up to date) Hx Influenza Vaccination/Date Given: Yes Hx Pneumococcal Vaccination/Date Given: No - Review of Systems Constitutional: Fatigue Eyes: No Symptoms Ears, Nose, & Throat: No Symptoms Respiratory: Cough, Dyspnea, Dyspnea on Exertion (HANSON), Wheezing Cardiac: No Chest Pain, No Edema, No Syncope Abdominal/Gastrointestinal: No Abdominal Pain, No Nausea, No Vomiting, No Diarrhea Genitourinary Symptoms: No Dysuria Musculoskeletal: No Back Pain, No Neck Pain Skin: No Rash Neurological: No Dizziness, No Focal Weakness, No Sensory Changes Psychological: No Symptoms Endocrine: No Symptoms Hematologic/Lymphatic: No Symptoms Immunological/Allergic: No Symptoms All Other Systems: Reviewed and Negative - Past Medical History Pertinent Past Medical History: Yes Neurological History: Seizures ENT History: No Pertinent History Cardiac History: Other Respiratory History: Asthma Endocrine Medical History: Diabetes Type II Musculoskeletal History: No Pertinent History GI Medical History: Pancreatitis, Other History: No Pertinent History Psycho-Social History: Anxiety, Depression Male Reproductive Disorders: No Pertinent History Other Medical History: hx orif rt elbow. 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; mitral valve prolapse ,states last sz about 1yr ago - Past Surgical History Past Surgical History: Yes Neuro Surgical History: No Pertinent History Cardiac: No Pertinent History Respiratory: No Pertinent History Gastrointestinal: No Pertinent History Genitourinary: No Pertinent History Musculoskeletal: Orthopedic Surgery, Other Male Surgical History: No Pertinent History Other Surgical History: right elbow orif; ink pen removed from right calf 2008 - Social History Smoking Status: Never smoker Exposure to second hand smoke: No Drug Use: none Patient Lives Alone: No - Nursing Vital Signs Nursing Vital Signs: Initial Vital Signs Temperature 97.2 F 12/16/17 15:45 Pulse Rate 110 H 12/16/17 15:45 Respiratory Rate 28 H 12/16/17 15:45 Blood Pressure 167/103 12/16/17 15:45 O2 Sat by Pulse Oximetry 92 L 12/16/17 15:45 Pain Scale Pain Intensity 0 - Physical Exam General Appearance: moderate distress Eye Exam: PERRL/EOMI Ears, Nose, Throat Exam: hearing grossly normal Neck Exam: normal inspection, supple Respiratory Exam: rhonchi, wheezing Cardiovascular/Chest Exam: normal heart sounds, regular rate/rhythm Abdominal/Gastrointestinal Exam: soft, No tenderness, No distention, No mass Rectal Exam: not done Extremity Exam: non-tender, normal range of motion, normal inspection, no calf tenderness, no pedal edema Neurologic Exam: alert, oriented x 3, cooperative, exchange clerk II-XII nml as tested, sensation nml, No motor deficits Skin Exam: normal color, warm, No dry SpO2 Interpretation: borderline oxygenation, O2 applied Oxygen Delivery: Nasal Cannula - Course EKG Interpreted by Me: RATE, Sinus Rhythm, NORMAL AXIS, NORMAL INTERVALS, NORMAL QRS, NORMAL ST-T, Other (No change in ) Rhythm Strip: Rate - Radiology Exams Chest X-ray Interpretation: Reviewed by me, Teleradiologist Report, Negative (No change in EKG compared to EKG 09/03/16) Ordered Tests: Active Orders 24 hr Category Date Time Status Transportation Department Head STAT Care 12/16/17 15:57 Active EKG-ER Only STAT Care 12/16/17 15:57 Active IV Insertion STAT Care 12/16/17 15:57 Active Pulse Oximetry (ED) STAT Care 12/16/17 15:57 Active CHEST 2 VIEWS (PA AND LAT) Stat Exams 12/16/17 15:57 Completed CBC W DIFF Stat Lab 12/16/17 16:10 Completed CMP Stat Lab 12/16/17 16:10 Completed NT PRO BNP Stat Lab 12/16/17 16:10 Completed TROPONIN Q3H Lab 12/16/17 16:10 Completed TROPONIN Q3H Lab 12/16/17 19:00 Ordered TROPONIN Q3H Lab 12/16/17 22:00 Ordered TROPONIN Q3H Lab 12/17/17 01:00 Ordered TROPONIN Q3H Lab 12/17/17 04:00 Ordered Respiratory Nebulizer STAT RT 12/16/17 15:48 Completed Respiratory Nebulizer STAT RT 12/16/17 17:06 Active Medication Summary Generic Name Dose Route Start Last Admin Trade Name Freq PRN Reason Stop Dose Admin Methylprednisolone Sodium Succinate 125 mg 12/16/17 15:57 12/16/17 16:37 Solu-Medrol 125 Mg IV 12/16/17 15:58 125 mg STAT ONE Administration Discontinued Medications Generic Name Dose Route Start Last Admin Trade Name Freq PRN Reason Stop Dose Admin Albuterol Sulfate 2.5 mg 12/16/17 17:06 12/16/17 17:43 Proventil 2.5 Mg/3 Ml Neb IH 12/16/17 17:07 2.5 mg STAT ONE Administration Albuterol Sulfate Confirm 12/16/17 17:39 Proventil 2.5 Mg/3 Ml Neb Administered 12/16/17 17:40 Dose 2.5 mg IH .STK-MED ONE Albuterol/Ipratropium 3 ml 12/16/17 15:48 12/16/17 15:57 Duoneb 0.5-3 Mg/3 Ml Neb IH 12/16/17 15:49 3 ml STAT ONE Administration Albuterol/Ipratropium Confirm 12/16/17 15:48 Duoneb 0.5-3 Mg/3 Ml Neb Administered 12/16/17 15:49 Dose 3 ml IH .STK-MED ONE Albuterol/Ipratropium Confirm 12/16/17 17:38 Duoneb 0.5-3 Mg/3 Ml Neb Administered 12/16/17 17:39 Dose 3 ml IH .STK-MED ONE Lab/Rad Data: Laboratory Result Diagrams 12/16/17 16:10 12/16/17 16:10 Laboratory Results 12/16/17 12/16/17 12/16/17 Range/Units 16:10 16:10 16:10 WBC 9.2 (4.0-10.5) K/mm3 RBC 4.54 (4.1-5.6) M/mm3 Hgb 15.6 (12.5-18.0) gm/dl Hct 42.7 (42-50) % MCV 94.1 (78-100) fl MCH 34.4 H (26-32) pg MCHC 36.5 H (32-36) g/dl RDW 13.0 (11.5-14.0) % Plt Count 217 (150-450) K/mm3 MPV 11.1 H (6-9.5) fl Gran % 58.0 (36.0-66.0) % Eos # (Auto) 0.16 (0-0.5) Absolute Lymphs (auto) 3.03 (1.0-4.6) Absolute Monos (auto) 0.64 (0.0-1.3) Lymphocytes % 33.1 (24.0-44.0) % Monocytes % 7.0 (0.0-12.0) % Eosinophils % 1.7 (0.00-5.0) % Basophils % 0.2 (0.0-0.4) % Absolute Granulocytes 5.31 (1.4-6.9) Basophils # 0.02 (0-0.4) Sodium 133 L (137-145) mmol/L Potassium 4.1 (3.5-5.1) mmol/L Chloride 99 (98-107) mmol/L Carbon Dioxide 21 L (22-30) mmol/L Anion Gap 17.2 H (5-15) MEQ/L BUN 18 (9-20) mg/dL Creatinine 1.22 (0.66-1.25) mg/dL Estimated GFR > 60.0 ML/MIN Glucose 503 H* (74-106) mg/dL Calcium 9.6 (8.4-10.2) mg/dL Total Bilirubin 0.90 (0.2-1.3) mg/dL AST 19 (17-59) U/L ALT 37 (0-50) U/L Alkaline Phosphatase 124 (38-126) U/L Troponin I < 0.012 (0.000-0.034) ng/mL NT-Pro-B Natriuret Pep 15.7 (0-450) pg/mL Serum Total Protein 7.6 (6.3-8.2) g/dL Albumin 4.2 (3.5-5.0) g/dL - Progress Progress: improved Air Movement: fair Blood Culture(s) Obtained: Yes Antibiotics given: No Discussed with : Hermilo Will see patient in: hospital (observation) Counseled pt/family regarding: lab results, diagnosis, rad results - Departure Time of Disposition: 17:46 Departure Disposition: Observation (per Dr Akhtar) Clinical Impression: Dyspnea, Elevated random blood glucose level Condition: Stable Critical Care Time: No Referrals: CURRY AKHTAR [Primary Care Provider] -
[2017-12-16] MEDS ORDERED: solu-MEDROL 125 MG IV ONE (15:57)
[2017-12-16 16:33] LABS: BASOPHIL % 0.2 % (0.0-0.4); Basophil (Absolute #) 0.02 (0-0.4); Eosinophil % 1.7 % (0.00-5.0); Eosinophil (Absolute #) 0.16 (0-0.5); Granulocyte Absolute (ANC) 5.31 (1.4-6.9); Hematocrit 42.7 % (42-50); Hemoglobin 15.6 gm/dl (12.5-18.0); Lymphocyte (Absolute #) 3.03 (1.0-4.6); Lymphocytes % 33.1 % (24.0-44.0); Mean Cell Volume 94.1 fl (78-100); Mean Corpuscular Hemoglobin 34.4 pg (26-32); Mean Corpuscular Hgb Concent. 36.5 g/dl (32-36); Mean Platelet Volume 11.1 fl (6-9.5); Monocyte (Absolute #) 0.64 (0.0-1.3); Platelet Count 217 K/mm3 (150-450); Red Blood Count 4.54 M/mm3 (4.1-5.6); White Blood Count 9.2 K/mm3 (4.0-10.5)
--- NOTE | 2017-12-16 16:38 | XRAY ---
Indication: Cough, congestion, and short of breath 3 weeks. Comparison: September 03, 2016. PA/lateral chest remains hyperinflated and clear. Heart is not enlarged. Bony thorax intact. No new/acute findings. Impression: Stable nonacute hyperinflated chest.
[2017-12-16 17:00] LABS: ALBUMIN 4.2 g/dL (3.5-5.0); ALKALINE PHOSPHATASE 124 U/L (38-126); ANION GAP 17.2 MEQ/L (5-15); BLOOD UREA NITROGEN 18 mg/dL (9-20); CHLORIDE 99 mmol/L (98-107); Calcium 9.6 mg/dL (8.4-10.2); Carbon Dioxide 21 mmol/L (22-30); Creatinine 1 1.22 mg/dL (0.66-1.25); Potassium 4.1 mmol/L (3.5-5.1); SGOT/AST 19 U/L (17-59); SGPT/ALT 37 U/L (0-50); SODIUM 133 mmol/L (137-145); Total Protein 7.6 g/dL (6.3-8.2)
[2017-12-16] MEDS ORDERED: PROVENTIL 2.5 MG/3 ML NEB IH ONE ×2 (17:06→17:39)
[2017-12-16 17:10] LABS: NT PRO BNP 15.7 pg/mL (0-450)
[2017-12-16 17:13] LABS: Glucose 503 mg/dL (74-106)
[2017-12-16] MEDS: solu-MEDROL 125 MG IV SCH (18:48)
[2017-12-16] MEDS ORDERED: PROVENTIL 2.5 MG/3 ML NEB IH PRN (18:57)
[2017-12-16] MEDS ORDERED: PROVENTIL 2.5 MG/3 ML NEB IH SCH (19:00)
[2017-12-16] MEDS: DUONEB 0.5-3 MG/3 ml Neb IH SCH ×2 (19:34→23:10)
[2017-12-16] MEDS: NovoLOG Insulin SQ PRN (19:41)
[2017-12-16] MEDS ORDERED: NovoLOG 70/30 Mix SQ ONE (21:47)
[2017-12-16] MEDS ORDERED: NovoLOG Insulin SQ ONE (22:07)
[2017-12-16] MEDS ORDERED: ZOCOR 20MG ONE (22:14)
[2017-12-16] MEDS ORDERED: Sodium Chloride 0.9% 1000 ML 1,000 ML IV SCH (22:15)
[2017-12-16] MEDS: ZOCOR 20MG PO SCH (22:22)
[2017-12-17] MEDS: Robitussin AC Syrup Unit Dose Cup PO PRN ×4 (00:01→22:02)
[2017-12-17] MEDS ORDERED: solu-MEDROL 125 MG ONE (00:36)
[2017-12-17] MEDS: solu-MEDROL 125 MG IV SCH ×4 (00:39→21:52)
[2017-12-17] MEDS: DUONEB 0.5-3 MG/3 ml Neb IH SCH ×5 (03:30→19:34)
[2017-12-17 04:49] LABS: Hematocrit 40.4 % (42-50); Hemoglobin 14.5 gm/dl (12.5-18.0); Mean Cell Volume 93.3 fl (78-100); Mean Corpuscular Hemoglobin 33.5 pg (26-32); Mean Corpuscular Hgb Concent. 35.9 g/dl (32-36); Mean Platelet Volume 11.2 fl (6-9.5); Platelet Count 211 K/mm3 (150-450); Red Blood Count 4.33 M/mm3 (4.1-5.6); Red Cell Distribution Width 12.9 % (11.5-14.0); White Blood Count 13.9 K/mm3 (4.0-10.5)
[2017-12-17 05:12] LABS: ANION GAP 18.9 MEQ/L (5-15); BLOOD UREA NITROGEN 18 mg/dL (9-20); CHLORIDE 99 mmol/L (98-107); Calcium 9.6 mg/dL (8.4-10.2); Carbon Dioxide 19 mmol/L (22-30); Creatinine 1 0.92 mg/dL (0.66-1.25); Glucose 470 mg/dL (74-106); Potassium 4.3 mmol/L (3.5-5.1); SODIUM 133 mmol/L (137-145)
[2017-12-17] MEDS: NovoLOG Insulin SQ PRN ×5 (06:16→21:53)
[2017-12-17] MEDS: Micronase 5 MG PO SCH ×2 (08:07→16:29)
[2017-12-17 08:38] LABS: Cholesterol 230 mg/dL (50-200); HDL CHOLESTEROL 31 mg/dL (40-60); Risk Ratio 7.4
--- NOTE | 2017-12-17 08:39 | XRAY ---
Indication: Cough. Comparison: December 16, 2017. PA/lateral chest remains hyperinflated and clear. Heart and mediastinal structures within normal limits. No new/acute findings.
[2017-12-17 08:46] LABS: TRIGLYCERIDE 941 mg/dL (30-150)
[2017-12-17 08:52] LABS: LDL, DIRECT < 30 mg/dL (30-100)
[2017-12-17] MEDS ORDERED: ROCEPHIN 1 Gm-D5w 50 ml Bag** 1 G/50 ML IVPB IV SCH (10:00)
[2017-12-17] MEDS ORDERED: TYLENOL 325 MG PO PRN (11:00)
[2017-12-17] MEDS ORDERED: Sodium Chloride 3 ML UD NEBULES IH ONE (13:35)
[2017-12-17] MEDS ORDERED: PROVENTIL Solution 2.5 MG/0.5 ML IH ONE ×2 (13:35→13:40)
[2017-12-17] MEDS: ZOCOR 20MG PO SCH (21:53)
[2017-12-17] MEDS ORDERED: Lantus Insulin SQ ONE (22:00)
[2017-12-17] MEDS ORDERED: NovoLIN R IV ONE (22:00)
[2017-12-18] MEDS: DUONEB 0.5-3 MG/3 ml Neb IH SCH ×3 (00:07→07:14)
[2017-12-18 05:39] LABS: Basophil (Absolute #) 0 (0-0.4); Eosinophil (Absolute #) 0 (0-0.5); Granulocyte Absolute (ANC) 18.18 (1.4-6.9); Granulocytes % 93.5 % (36.0-66.0); Hematocrit 40.4 % (42-50); Hemoglobin 13.9 gm/dl (12.5-18.0); Lymphocyte (Absolute #) 0.64 (1.0-4.6); Lymphocytes % 3.3 % (24.0-44.0); Mean Cell Volume 97.8 fl (78-100); Mean Corpuscular Hemoglobin 33.7 pg (26-32); Mean Corpuscular Hgb Concent. 34.4 g/dl (32-36); Mean Platelet Volume 11.4 fl (6-9.5); Monocyte (Absolute #) 0.62 (0.0-1.3); Monocytes % 3.2 % (0.0-12.0); Platelet Count 217 K/mm3 (150-450); Red Blood Count 4.13 M/mm3 (4.1-5.6); Red Cell Distribution Width 13.1 % (11.5-14.0); White Blood Count 19.4 K/mm3 (4.0-10.5)
[2017-12-18] MEDS: solu-MEDROL 125 MG IV SCH (05:52)
[2017-12-18 06:04] LABS: ANION GAP 13.6 MEQ/L (5-15); BLOOD UREA NITROGEN 23 mg/dL (9-20); CHLORIDE 101 mmol/L (98-107); Calcium 9.2 mg/dL (8.4-10.2); Carbon Dioxide 23 mmol/L (22-30); Creatinine 1 0.92 mg/dL (0.66-1.25); Glucose 425 mg/dL (74-106); Potassium 4.6 mmol/L (3.5-5.1); SODIUM 134 mmol/L (137-145)
[2017-12-18 07:31] VITALS: BP 117/66; PULSE 83; O2SAT 93
[2017-12-18] MEDS: NovoLOG Insulin SQ PRN (08:03)
[2017-12-18] MEDS: Micronase 5 MG PO SCH (08:03)
--- NOTE | 2017-12-18 08:33 | PCM.DCORD ---
- Discharge Discharge Date: 12/18/17 Prescriptions: New Amox Tr/Potass Clav. 875 mg [Augmentin 875-125 Tablet] 875 mg PO BID 7 Days #14 tablet Prednisone 10 mg [Deltasone 10 mg] 30 mg PO DAILY 15 Days #30 tablet Glyburide 5 mg [Micronase 5 MG] 5 mg PO BIDWM #60 tablet Insulin Aspart [NovoLOG Insulin] See Protocol SQ ACHS #1 unit Albuterol 2.5 mg/3 ml Neb [Proventil 2.5 mg/3 ml Neb] 2.5 mg IH Q4HPRN PRN 30 Days #180 neb PRN Reason: sob Continue Atorvastatin Calcium [Lipitor 40Mg] 40 mg PO HS Additional Instructions: may return to work when their is no longer need for supplemental O2. Check fingerstick Blood Sugar before meals and at bedtime Follow up with: CURRY CHAKRABORTY [Primary Care Provider] - 1 Week
--- NOTE | 2017-12-18 11:02 | SSS ---
DISCHARGE DIAGNOSES: 1) ASTHMA. 2) DIABETES MELLITUS OUT OF CONTROL. HOSPITAL COURSE: The patient is a 42 year-old white male patient who has been having problems with increasing shortness of breath over the past several weeks. He has been using Albuterol handheld puffer and had went through a bottle fairly quickly. He had been seen in the [facility] and treated previously but did not improve. He was seen in the [facility] once again and then sent to the emergency room where he was admitted to the hospital for treatment. The patient did have nebulized treatments, IV Solu-Medrol and empiric antibiotics in the emergency room. During his hospital stay he was found to be fairly well under control. He did have episodes in the evening where he had to have continuous nebulizer treatment. His oxygen saturations were low on admission and placed on supplemental oxygen. Since he had been on oxygen his saturations have been in the mid 90's on 2 liters nasal cannula. The patient's evaluation was otherwise chest x-ray was clear. His initial white blood cell count was normal until he received the steroids at which time otherwise his white blood cell count colton to 19,400 on the IV Solu-Medrol. His hemoglobin 13.9 and PLT count 217,000. The patient's sugars have been significantly elevated as well. His initial was 503 which was treated with IV insulin as well as placing him on a sliding scale coverage and reinstituting his Glyburide. The patient is known to be diabetic but has been off of his medications as he had fairly good A1C's in the low 5 range. Glyburide was thus discontinued. The patient's blood cultures apparently had a contaminant which was noted as yeast. His metabolic panel otherwise showed a BUN 23, creatinine 0.92. Electrolytes are normal. He had LDL cholesterol 31, triglycerides were high at 941. A1C was 7.66. PHYSICAL EXAMINATION: The patient is a well nourished, well developed 42 year-old white male patient in no obvious distress. HEENT: Normocephalic, atraumatic. Pupils equal round reactive to light. Extraocular movements intact. Oropharynx is pink and moist. NECK: Supple without lymphadenopathy, thyromegaly or JVD. CHEST: On my examination was clear. HEART: Regular rate and rhythm without murmurs, rubs or gallops. ABDOMEN: Soft, nontender, nondistended without palpable masses. EXTREMITIES: Without clubbing, cyanosis or edema. NEUROLOGIC: The patient is alert and oriented x3 with no focal deficits. The patient's vital signs before discharge showed a pulse of 87, respiratory rate 22, blood pressure 107/60. O2 saturation 95% on 2 liters nasal cannula. Temperature 97.9F. The patient will be discharged home now on prednisone 30 mg for five days, 20 mg for five days and 10 mg for five days. He will be getting a nebulizer machine and Albuterol to use in the machine. We will check his O2 saturations prior to discharge resting on room air and if he qualifies will send him home with supplemental oxygen. We will restart his Glyburide 5 mg b.i.d. He is instructed to purchase an O2 saturation monitor for monitoring his oxygen at home and he agreed to do this. He will be seen in the office in five days or sooner should he have any exacerbations. He is also instructed to return to the hospital if he has increasing shortness of breath not controlled by the nebulizer treatments and if his saturations are less than 90%.
== END 2017-12-18 09:38 | disposition home or self-care (01) ==
LOC: ED 15:39 → MED SURG 18:06
PROVIDERS: ADMIT Family Medicine; ATTEND Family Medicine
DX: J45.901 Unspecified asthma with (acute) exacerbation (principal); E11.65 Type 2 diabetes mellitus with hyperglycemia
CPT/HCPCS: 36000; 36415; 71046; 80048; 80053; 80061; 82947; 83036; 83721; 83880; 84484; 85025; 85027; 85379; 87040; 87077; 93005; 93041; 93268; 94150; 94640; 94760; 96374; 99285; J7609; J0696; J2930; A9270-GY; G0378

== ENCOUNTER 2021-02-19 20:15 | Emergency (ER) | payer MEDICAID ==
[2021-02-19] MEDS ORDERED: Sodium Chloride 0.9% 1000 ML 1,000 ML IV STA ×2 (21:20→21:23)
[2021-02-19] MEDS ORDERED: HUMULIN R IV ONE (21:20)
--- NOTE | 2021-02-19 21:20 | ERPHSYRPT ---
- History of Present Illness Time Seen by Provider: 02/19/21 21:16 Source: patient, family Exam Limitations: no limitations Patient Subjective Stated Complaint: pt states he hasnt been taking his meds in months and his blood sugar was reading over 600 at home. Triage Nursing Assessment: pt alert and oriented. answers questions approp. pt ambulatory with steady gait noted. respirations nonlabored with lungs cta. pupils equal and reactive. skin warm and dry. Physician History: Diabetic is off meds with high blood sugar , but no other symptoms - no sobreath, no CP, No Abd pain. No neuro symptoms, vision a little blurring as is usual per pt when his sugars are high - confirmed 540 accucheck in ER. normal exam otw. reports healed infected boil right leg - just about gone now - from 2 weeks ago. now no fluctuance. Timing/Duration: today Severity: moderate Associated Symptoms: denies symptoms Allergies/Adverse Reactions: morphine Adverse Reaction (Intermediate, Verified 02/19/21 23:38) Hives Hx Tetanus, Diphtheria Vaccination/Date Given: Yes Hx Influenza Vaccination/Date Given: No Hx Pneumococcal Vaccination/Date Given: No Immunizations Up to Date: Yes Travel Risk - International Travel Have you traveled outside of the country in past 3 weeks: No - Coronavirus Screening Are you exhibiting any of the following symptoms?: No Close contact with a COVID-19 positive Pt in past 14-21 Days: No - Vaccine Status Have you recieved a Covid-19 vaccination: Yes 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 - Vaccination Dates Date of 2cond Vaccination (if applicable): january 2021 - Review of Systems Constitutional: No Fever, No Chills Eyes: No Symptoms Ears, Nose, & Throat: No Symptoms Respiratory: No Cough, No Dyspnea Cardiac: No Chest Pain, No Edema, No Syncope Abdominal/Gastrointestinal: No Abdominal Pain, No Nausea, No Vomiting, No Diarrhea Genitourinary Symptoms: Frequency, No Dysuria Musculoskeletal: No Back Pain, No Neck Pain Skin: No Rash Neurological: No Dizziness, No Focal Weakness, No Sensory Changes Psychological: No Symptoms Endocrine: No Symptoms All Other Systems: Reviewed and Negative - Past Medical History Pertinent Past Medical History: Yes Neurological History: Seizures ENT History: No Pertinent History Cardiac History: Other Respiratory History: Asthma Endocrine Medical History: Diabetes Type II Musculoskeletal History: No Pertinent History GI Medical History: Pancreatitis, Other History: No Pertinent History Psycho-Social History: Anxiety, Depression Male Reproductive Disorders: No Pertinent History Other Medical History: hx orif rt elbow. 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; mitral valve prolapse ,states last sz about 1yr ago - Past Surgical History Past Surgical History: Yes Neuro Surgical History: No Pertinent History Cardiac: No Pertinent History Respiratory: No Pertinent History Gastrointestinal: No Pertinent History Genitourinary: No Pertinent History Musculoskeletal: Orthopedic Surgery, Other Male Surgical History: No Pertinent History Other Surgical History: right elbow orif; ink pen removed from right calf 2008 - Social History Smoking Status: Former smoker Exposure to second hand smoke: No Drug Use: none Patient Lives Alone: No - Nursing Vital Signs Nursing Vital Signs: Initial Vital Signs Temperature 98.5 F 02/19/21 20:58 Pulse Rate 91 H 02/19/21 20:58 Respiratory Rate 18 02/19/21 20:58 Blood Pressure 137/77 02/19/21 20:58 O2 Sat by Pulse Oximetry 97 02/19/21 20:58 Pain Scale Pain Intensity 0 - Physical Exam General Appearance: no apparent distress, alert Eye Exam: PERRL/EOMI, eyes nml inspection Ears, Nose, Throat Exam: normal ENT inspection, TMs normal, pharynx normal, mois t mucous membranes Neck Exam: normal inspection, non-tender, supple, full range of motion Respiratory Exam: normal breath sounds, lungs clear, No respiratory distress Cardiovascular Exam: regular rate/rhythm, normal heart sounds, normal peripheral pulses Gastrointestinal/Abdomen Exam: soft, normal bowel sounds, No tenderness, No mass Back Exam: normal inspection, normal range of motion, No CVA tenderness, No vertebral tenderness Extremity Exam: normal inspection, normal range of motion, pelvis stable Neurologic Exam: alert, oriented x 3, cooperative, normal mood/affect, nml cerebellar function, nml station & gait, sensation nml, No motor deficits Skin Exam: normal color, warm, dry, No rash Lymphatic Exam: No adenopathy SpO2 Interpretation: normal SpO2: 97 O2 Delivery: Room Air - Course Nursing assessment & vital signs reviewed: Yes Ordered Tests: Active Orders 24 hr Category Date Time Status IV Insertion STAT Care 02/19/21 21:20 Active POCT Glucose Check STAT Care 02/19/21 21:20 Active Pulse Oximetry (ED) STAT Care 02/19/21 21:20 Active CBC W DIFF Stat Lab 02/19/21 21:41 Completed CMP Stat Lab 02/19/21 21:41 Completed Lactic Acid Urgent Lab 02/19/21 21:35 Completed POCT GLUCOSE Stat Lab 02/19/21 21:17 Completed POCT GLUCOSE Stat Lab 02/19/21 23:07 Completed UA W/RFX UR CULTURE Stat Lab 02/19/21 22:21 Completed Medication Summary Discontinued Medications Generic Name Dose Route Start Last Admin Trade Name Yan PRN Reason Stop Dose Admin Sodium Chloride 1,000 mls @ 999 mls/hr 02/19/21 21:20 02/19/21 23:05 Sodium Chloride 0.9% 1000 Ml IV 02/19/21 22:20 Infused .Q1H1M STA Infusion Sodium Chloride 1,000 mls @ 999 mls/hr 02/19/21 21:23 02/19/21 23:34 Sodium Chloride 0.9% 1000 Ml IV 02/19/21 22:23 Infused .Q1H1M STA Infusion Sodium Chloride Confirm 02/19/21 21:43 Sodium Chloride 0.9% 1000 Ml Administered 02/19/21 21:44 Dose 1,000 mls @ ud .ROUTE .STK-MED ONE Sodium Chloride Confirm 02/19/21 22:41 Sodium Chloride 0.9% 1000 Ml Administered 02/19/21 22:42 Dose 1,000 mls @ ud .ROUTE .STK-MED ONE Insulin Human Regular 20 unit 02/19/21 21:20 02/19/21 21:53 Humulin R IV 02/19/21 21:21 20 unit STAT ONE Administration Insulin Human Regular Confirm 02/19/21 21:46 Humulin R Administered 02/19/21 21:47 Dose 20 unit .ROUTE .STK-MED ONE Insulin Human Regular Confirm 02/19/21 23:57 Humulin R Administered 02/19/21 23:58 Dose 1 unit .ROUTE .STK-MED ONE Potassium Bicarbonate 25 meq 02/19/21 21:23 02/19/21 21:48 K-Lyte 25 Meq PO 02/19/21 21:24 25 meq STAT ONE Administration Potassium Bicarbonate Confirm 02/19/21 21:47 K-Lyte 25 Meq Administered 02/19/21 21:48 Dose 25 meq .ROUTE .STK-MED ONE Lab/Rad Data: Laboratory Result Diagrams 02/19/21 21:41 02/19/21 21:41 Laboratory Results 02/19/21 02/19/21 02/19/21 Range/Units 23:07 22:21 21:41 WBC (4.0-10.5) K/mm3 RBC (4.1-5.6) M/mm3 Hgb (12.5-18.0) gm/dl Hct (42-50) % MCV (78-100) fl MCH (26-32) pg MCHC (32-36) g/dl RDW (11.5-14.0) % Plt Count (150-450) K/mm3 MPV (7.5-11.0) fl Gran % (36.0-66.0) % Eos # (Auto) (0-0.5) Absolute Lymphs (auto) (1.0-4.6) Absolute Monos (auto) (0.0-1.3) Lymphocytes % (24.0-44.0) % Monocytes % (0.0-12.0) % Eosinophils % (0.00-5.0) % Basophils % (0.0-0.4) % Absolute Granulocytes (1.4-6.9) Basophils # (0-0.4) Sodium 140 (137-145) mmol/L Potassium 4.1 (3.5-5.1) mmol/L Chloride 92 L (98-107) mmol/L Carbon Dioxide 22 (22-30) mmol/L Anion Gap 29.8 H (5-15) MEQ/L BUN 18 (9-20) mg/dL Creatinine 0.80 (0.66-1.25) mg/dL Estimated GFR > 60.0 ML/MIN Glucose 577 H* (74-106) mg/dL POC Glucometer 256 H (50 to 500) mg/dL Lactic Acid (0.4-2.0) Calcium 9.6 (8.4-10.2) mg/dL Total Bilirubin 1.10 (0.2-1.3) mg/dL AST 25 (17-59) U/L ALT 29 (0-50) U/L Alkaline Phosphatase 102 (38-126) U/L Serum Total Protein 7.9 (6.3-8.2) g/dL Albumin 4.5 (3.5-5.0) g/dL Urine Color STRAW (YELLOW) Urine Appearance CLEAR (CLEAR) Urine pH 5.0 (5-6) Ur Specific [place] 1.032 (1.005-1.025) Urine Protein NEGATIVE (Negative) Urine Ketones NEGATIVE (NEGATIVE) Urine Blood NEGATIVE (0-5) Sergo/ul Urine Nitrite NEGATIVE (NEGATIVE) Urine Bilirubin NEGATIVE (NEGATIVE) Urine Urobilinogen NEGATIVE (0-1) mg/dL Ur Leukocyte Esterase NEGATIVE (NEGATIVE) Urine WBC (Auto) NONE (0-5) /HPF Urine RBC (Auto) NONE (0-2) /HPF U Epithel Cells (Auto) NONE (FEW) /HPF Urine Bacteria (Auto) NONE (NEGATIVE) /HPF Urine Culture Reflexed NO (NO) Urine Glucose >=500 (NEGATIVE) mg/dL 02/19/21 02/19/21 02/19/21 Range/Units 21:41 21:35 21:17 WBC 9.9 (4.0-10.5) K/mm3 RBC 5.00 (4.1-5.6) M/mm3 Hgb 15.8 (12.5-18.0) gm/dl Hct 43.0 (42-50) % MCV 86.0 (78-100) fl MCH 31.6 (26-32) pg MCHC 36.7 H (32-36) g/dl RDW 13.2 (11.5-14.0) % Plt Count 295 (150-450) K/mm3 MPV 10.5 (7.5-11.0) fl Gran % 58.8 (36.0-66.0) % Eos # (Auto) 0.14 (0-0.5) Absolute Lymphs (auto) 3.12 (1.0-4.6) Absolute Monos (auto) 0.79 (0.0-1.3) Lymphocytes % 31.5 (24.0-44.0) % Monocytes % 8.0 (0.0-12.0) % Eosinophils % 1.4 (0.00-5.0) % Basophils % 0.3 (0.0-0.4) % Absolute Granulocytes 5.84 (1.4-6.9) Basophils # 0.03 (0-0.4) Sodium (137-145) mmol/L Potassium (3.5-5.1) mmol/L Chloride (98-107) mmol/L Carbon Dioxide (22-30) mmol/L Anion Gap (5-15) MEQ/L BUN (9-20) mg/dL Creatinine (0.66-1.25) mg/dL Estimated GFR ML/MIN Glucose (74-106) mg/dL POC Glucometer 541 H* (50 to 500) mg/dL Lactic Acid 1.8 (0.4-2.0) Calcium (8.4-10.2) mg/dL Total Bilirubin (0.2-1.3) mg/dL AST (17-59) U/L ALT (0-50) U/L Alkaline Phosphatase (38-126) U/L Serum Total Protein (6.3-8.2) g/dL Albumin (3.5-5.0) g/dL Urine Color (YELLOW) Urine Appearance (CLEAR) Urine pH (5-6) Ur Specific [place] (1.005-1.025) Urine Protein (Negative) Urine Ketones (NEGATIVE) Urine Blood (0-5) Sergo/ul Urine Nitrite (NEGATIVE) Urine Bilirubin (NEGATIVE) Urine Urobilinogen (0-1) mg/dL Ur Leukocyte Esterase (NEGATIVE) Urine WBC (Auto) (0-5) /HPF Urine RBC (Auto) (0-2) /HPF U Epithel Cells (Auto) (FEW) /HPF Urine Bacteria (Auto) (NEGATIVE) /HPF Urine Culture Reflexed (NO) Urine Glucose (NEGATIVE) mg/dL - Progress Progress: improved, re-examined Progress Note: 02/20/21 00:40 pt did well with glucose down to 200 range and asympt with no more blurry vision or frequency of urine; pt would prefer outpt manage and was previously maintained on glyburide 5 met 500 bid and will see his Dr jamie this week to recheck and have permanent management and return meantime if any symptoms or concerns. Counseled pt/family regarding: lab results, diagnosis, need for follow-up - Departure Departure Disposition: Home Clinical Impression: diabetes/lack of treatment meds Condition: Good Critical Care Time: No Referrals: CURRY CHAKRABORTY [Primary Care Provider] - Instructions: Type 2 Diabetes Additional Instructions: see your dr. ayala this week to resume management of your Diabetes adn return meantime if not improving or any symptoms of concern. Prescriptions: Metformin HCl 500 mg [Glucophage 500 MG] 500 mg PO BIDWM #10 tablet Glyburide 5 mg [Micronase 5 MG] 5 mg PO BID #10 tablet
[2021-02-19] MEDS ORDERED: K-LYTE 25 MEQ PO ONE (21:23)
[2021-02-19] MEDS ORDERED: Sodium Chloride 0.9% 1000 ML 1,000 ML ONE ×2 (21:43→22:41)
[2021-02-19 21:44] LABS: Absolute Neutrophil Ct (ANC) 5.84 (1.4-6.9); BASOPHIL % 0.3 % (0.0-0.4); Basophil (Absolute #) 0.03 (0-0.4); Eosinophil % 1.4 % (0.00-5.0); Eosinophil (Absolute #) 0.14 (0-0.5); Hemoglobin 15.8 gm/dl (12.5-18.0); Lymphocyte (Absolute #) 3.12 (1.0-4.6); Lymphocytes % 31.5 % (24.0-44.0); Mean Corpuscular Hemoglobin 31.6 pg (26-32); Mean Corpuscular Hgb Concent. 36.7 g/dl (32-36); Mean Platelet Volume 10.5 fl (7.5-11.0); Monocyte (Absolute #) 0.79 (0.0-1.3); Neutrophil % 58.8 % (36.0-66.0); Platelet Count 295 K/mm3 (150-450); Red Cell Distribution Width 13.2 % (11.5-14.0); White Blood Count 9.9 K/mm3 (4.0-10.5)
[2021-02-19] MEDS ORDERED: HUMULIN R ONE ×2 (21:46→23:57)
[2021-02-19] MEDS ORDERED: K-LYTE 25 MEQ ONE (21:47)
[2021-02-19 21:53] LABS: ALBUMIN 4.5 g/dL (3.5-5.0); ALKALINE PHOSPHATASE 102 U/L (38-126); ANION GAP 29.8 MEQ/L (5-15); BLOOD UREA NITROGEN 18 mg/dL (9-20); CHLORIDE 92 mmol/L (98-107); Calcium 9.6 mg/dL (8.4-10.2); Carbon Dioxide 22 mmol/L (22-30); EST GLOMERULAR FILTRATION RATE > 60.0 ML/MIN; Potassium 4.1 mmol/L (3.5-5.1); SGOT/AST 25 U/L (17-59); SGPT/ALT 29 U/L (0-50); SODIUM 140 mmol/L (137-145); Total Protein 7.9 g/dL (6.3-8.2)
[2021-02-19 22:00] LABS: Glucose 577 mg/dL (74-106)
[2021-02-19 22:42] LABS: Appearance CLEAR (CLEAR); Bilirubin NEGATIVE (NEGATIVE); Blood NEGATIVE Ery/ul (0-5); Glucose >=500 mg/dL (NEGATIVE); Ketones NEGATIVE (NEGATIVE); Leukocyte Esterase NEGATIVE (NEGATIVE); Nitrite NEGATIVE (NEGATIVE); Protein,Urine Dip NEGATIVE (Negative); Specific Gravity 1.032 (1.005-1.025); Urobilinogen NEGATIVE mg/dL (0-1)
[2021-02-20 01:45] VITALS: BP 108/84; PULSE 64; O2SAT 98
== END 2021-02-20 01:50 | disposition home or self-care (01) ==
LOC: ED 20:15
DX: E11.65 Type 2 diabetes mellitus with hyperglycemia (principal); Z91.14 Patient's other noncompliance with medication regimen
CPT/HCPCS: 36000; 36415; 80053; 81001; 82947; 83605; 85025; 94760; 96360; 96374; 99284; J1815; A9270-GY